=== PATIENT | male | born 2000 | race Caucasian/White ===

== ENCOUNTER 2025-05-13 19:12 | Outpatient (CLI) | payer OTHER, SELFPAY ==
--- NOTE | 2025-05-13 19:48 | DI.RAD_ITS ---
Exam(s) XR FOOT LT COMPLETE EXAM: XR FOOT LT COMPLETE CLINICAL HISTORY: eval pathology M79.672 Pain in left foot. TECHNIQUE: 2D digital imaging was performed of the left foot. Three images were obtained. AP, oblique and lateral views were obtained. COMPARISON: No exams were available for comparison FINDINGS: BONES: No acute fracture is present. No bony destructive lesion is seen. JOINTS: No dislocation present. SOFT TISSUE: Normal. IMPRESSION: 1. Unremarkable radiographs of the left foot. 2. The preliminary [facility] report was reviewed. DATA REPOSITORY: RADIATION DOSE DELIVERED:
--- NOTE | 2025-05-13 20:55 | DI.[facility]_ITS ---
PROCEDURE INFORMATION: Exam: XR Left Foot Exam date and time: 05/13/2025 7:45 PM Age: 24 years old Clinical indication: Pain; Foot; Left; Additional info: Eval pathology m79.672 pain in left foot. PT sts pain in lt heel TECHNIQUE: Imaging protocol: Radiologic exam of the left foot. Views: 3 or more views. COMPARISON: No relevant prior studies available. FINDINGS: Bones/joints: Normal. Soft tissues: Normal. IMPRESSION: No acute findings. Dictated and Authenticated by: Jabier Gottlieb MD. Orderin Pierre Snider MD
== END 2025-05-13 19:32 ==
PROVIDERS: Visit Provider Nurse Practitioner Family
DX: M79.672 Pain in left foot (principal)
CPT/HCPCS: 73630